=== PATIENT | female | born 1970 | race Caucasian/White ===

== ENCOUNTER 2022-01-12 05:45 | Day surgery (SDC) | payer BC ==
[2022-01-08 14:17] VITALS: BMI 33.2
--- NOTE | 2022-01-10 07:20 | P.HPOB ---
History of Present Illness H&P Date: 01/10/22 Chief Complaint: Dysfunctional uterine bleeding, abnormal endometrial thickening This patient is a pleasant 51-year-old 3 para 2 female who initially presented to me in early December with complaints of irregular menstrual bleeding. Patient not been in the office in approximately 17 years. She states that she was having regular menstrual cycles until May of last year and then started having 2 a month. She also had 2 episodes of bleeding in July. I did order a transvaginal ultrasound which showed endometrial thickening to 26- 1/2 mm and 2 small fibroids. Patient now presents for hysteroscopy D&C for further evaluation and treatment. Review of Systems Genitourinary: Reports abnormal vaginal bleeding, Reports menorrhagia Past Medical History Past Medical History: Hypertension Additional Past Medical History / Comment(s): abnormal vaginal bleeding History of Any Multi-Drug Resistant Organisms: None Reported Additional Past Surgical History / Comment(s): D&C Past Anesthesia/Blood Transfusion Reactions: No Reported Reaction Past Psychological History: No Psychological Hx Reported Smoking Status: Never smoker Past Alcohol Use History: None Reported Past Drug Use History: None Reported - Past Family History Father Family Medical History: Cancer Medications and Allergies Home Medications Medication Instructions Recorded Confirmed Type Ascorbic Acid [Vitamin C] 500 mg PO Q2D 01/08/22 01/08/22 History Cholecalciferol [Vitamin D3 (25 25 mcg PO Q2D 01/08/22 01/08/22 History Mcg = 1000 Iu)] Metoprolol Tartrate [Lopressor] 50 mg PO BID 01/08/22 01/08/22 History Vit C/E/Zn/Coppr/Lutein/Zeaxan 1 each PO DAILY 01/08/22 01/08/22 History [Preservision Areds 2 Softgel] lisinopriL [Zestril] 20 mg PO PC-SUPPER 01/08/22 01/08/22 History Allergies Allergy/AdvReac Type Severity Reaction Status Date / Time Penicillins Allergy Swelling Verified 01/08/22 14:08 Exam - OBG Physical Exam Abdomen: bowel sounds normal, no diffuse tenderness, no bruit present, no guarding noted, no hepatomegaly, no splenomegaly, no mass Vulva: both: normal Vagina: normal moisture, no discharge Cervix: no lesion, no discharge Uterus: normal size, normal contour Results Transvaginal ultrasound shows endometrium to be 26.5 mm. She has a few small fibroids the largest is 2.7 cm Assessment and Plan Assessment: This is a pleasant 51-year-old 3 para 2 female with approximately 6+ months of dysfunctional uterine bleeding and abnormal thickening on transvaginal ultrasound. Plan is hysteroscopy and D&C for further evaluation. Patient I have discussed the surgery and risks and risks of infection, bleeding, possible uterine perforation. All the patient's questions are answered and a written consent obtained. (1) Dysfunctional uterine bleeding Status: Acute Code(s): N93.8 - OTHER SPECIFIED ABNORMAL UTERINE AND VAGINAL BLEEDING SNOMED Code(s): 93656691550067 (2) Endometrial thickening on ultrasound Status: Acute Code(s): R93.89 - ABNORMAL FINDINGS ON DX IMAGING OF OTH BODY STRUCTURES SNOMED Code(s): 307063453
[~2022-01-12 05:45] MED LIST: Pre Op ABX Message 1 EACH MISC MISCELLANE ONE
[2022-01-12] MEDS ORDERED: DEXAMETHASONE SOD PHOSPHATE 4 MG/ML 1 ML VIAL IV ONE (06:11)
[2022-01-12] MEDS ORDERED: HYDROmorphone 0.5 MG/0.5 ML SYRINGE IVP PRN (06:11)
[2022-01-12] MEDS ORDERED: ONDANSETRON 4 MG/2 ML VIAL IVP ONE (06:11)
[2022-01-12] MEDS ORDERED: LACTATED RINGERS 1,000 ML IV SCH (06:11)
[2022-01-12] MEDS ORDERED: SUCCINYLCHOLINE CHLORIDE 100 MG/5 ML SYR IV ONE (06:45)
[2022-01-12] MEDS ORDERED: fentaNYL (PF) 50 MCG/ML 2 ML AMP ONE (06:45)
[2022-01-12] MEDS ORDERED: LIDOCAINE 1% INJ 10MG/ML (20 ML MDV) ONE (06:45)
[2022-01-12] MEDS ORDERED: MIDAZOLAM 2 MG/2 ML VIAL ONE (06:45)
[2022-01-12] MEDS ORDERED: PROPOFOL 10 MG/ML 20 ML VIAL IV ONE (06:45)
--- NOTE | 2022-01-12 07:25 | P.OP ---
Date of Procedure: 01/12/22 Preoperative Diagnosis: Dysfunctional uterine bleeding with thickening on pelvic ultrasound Postoperative Diagnosis: Same Procedure(s) Performed: #1: Hysteroscopy. #2: Dilation and curettage Anesthesia: AFIA Surgeon: Musa Do Estimated Blood Loss (ml): 10 Urine output (ml): 10 Pathology: other (Uterine curettings) Condition: stable Disposition: PACU Indications for Procedure: Please see dictated H&P for intimate details of this patient's admission. Brief summary this pleasant 51-year-old multiparous patient who presented to me with complaints of dysfunctional uterine bleeding. Patient had a transvaginal ultrasound showed endometrial thickening 26-1/2 mm and therefore presents for hysteroscopy D&C for further evaluation. Patient does understand the surgery and risks and risks of infection, bleeding, possible uterine perforation. All the patient's questions are answered and a written consent is obtained. Operative Findings: This patient had thickening of the lining consistent with multiple polyps. Description of Procedure: This patient is taken to the operating room where she is laid in supine position. She subsequently undergoes general endotracheal anesthesia without incident. With adequate level of anesthesia she's placed in dorsal lithotomy position. She has a vaginal perineal prep and drape. Examination under anesthesia shows a mid position uterus of normal size. Weighted speculum placed in posterior vagina. Bladder is drained for 10 mL of clear urine. I placed an Allis clamp on the anterior lip of cervix. Uterus is then sounded to 9 cm. This done serial dilation of the endocervix is done to allow a hysteroscope into the uterine cavity using saline solution hysteroscopy is performed. Uterine cavity does appear to be thickened with multiple areas appear to be polyps. There is no evidence of any fibroids or other concerning growths. This done the hysteroscope was removed. Cervix is dilated more to allow the polyp forceps easily uterine cavity. I do remove several areas. I did do a vigorous, thorough, but gentle 4 quadrant curettage. Excellent sampling is done. This done the procedure is ended. The Allis clamp and weighted speculum removed. All counts are correct 3. There are no complications. Patient is awakened from anesthesia and taken recovery room satisfactory condition.
[2022-01-12 07:27] VITALS: TEMP 97
[2022-01-12] MEDS ORDERED: KETOROLAC 15 MG/ML 1 ML VIAL IVP ONE (07:32)
[2022-01-12 08:08] VITALS: RESP 18
[2022-01-12 09:02] VITALS: BP 135/71; PULSE 61
== END 2022-01-12 09:01 | disposition home or self-care (01) ==
LOC: OR 05:45
PROVIDERS: ATTEND Obstetrics & Gynecology
DX: N93.8 Other specified abnormal uterine and vaginal bleeding (principal); R93.89 Abnormal findings on diagnostic imaging of other specified body structures; I10 Essential (primary) hypertension; Z80.9 Family history of malignant neoplasm, unspecified; Z79.899 Other long term (current) drug therapy; Z79.1 Long term (current) use of non-steroidal anti-inflammatories (NSAID); Z88.0 Allergy status to penicillin
CPT/HCPCS: 81025; 88305; 58558; J2250; J1100; J2405; J2001; J3010; J1885; J0330; J2704

== ENCOUNTER 2022-01-22 07:25 | Emergency (ER) | payer BC ==
[2022-01-22] MEDS ORDERED: SODIUM CHLORIDE 0.9% 500 ML 500 ML IV STA (07:36)
[2022-01-22] MEDS ORDERED: MECLIZINE 12.5 MG TAB PO STA (07:42)
--- NOTE | 2022-01-22 07:50 | ED ---
General Adult HPI - General Chief complaint: Dizziness Stated complaint: Dizziness Time Seen by Provider: 01/22/22 07:35 Source: patient, RN notes reviewed, old records reviewed Mode of arrival: wheelchair Limitations: no limitations - History of Present Illness Initial comments: This is a well-appearing 52-year-old female that presents to the emergency room with complaints of intermittent dizziness. Patient states that it started last night when she was blow drying her hair with her head upside down and after quickly lifting her head. Patient states that this dizziness is worse with certain movements. She denies any chest pain, difficulty in breathing or headaches. No nausea, vomiting, diarrhea or fevers. She does have history of hypertension and takes metoprolol and lisinopril and did take her medicines this morning. -: days(s) (1) Location: head Severity scale (1-10): 0 Consistency: intermittent, now resolved Worsens with: movement - Related Data Home Medications Medication Instructions Recorded Confirmed Ascorbic Acid [Vitamin C] 500 mg PO Q2D 01/08/22 01/22/22 Cholecalciferol [Vitamin D3 (25 25 mcg PO Q2D 01/08/22 01/22/22 Mcg = 1000 Iu)] Metoprolol Tartrate [Lopressor] 50 mg PO BID 01/08/22 01/22/22 Vit C/E/Zn/Coppr/Lutein/Zeaxan 1 cap PO DAILY 01/08/22 01/22/22 [Preservision Areds 2 Softgel] lisinopriL [Zestril] 20 mg PO PC-SUPPER 01/08/22 01/22/22 Previous Rx's Medication Instructions Recorded Ibuprofen [Motrin] 600 mg PO Q6HR PRN #30 tab 01/12/22 Meclizine [Antivert] 25 mg PO TID PRN #15 tab 01/22/22 Allergies Allergy/AdvReac Type Severity Reaction Status Date / Time Penicillins Allergy Lip Verified 01/22/22 08:40 Swelling Review of Systems ROS Statement: Those systems with pertinent positive or pertinent negative responses have been documented in the HPI. ROS Other: All systems not noted in ROS Statement are negative. Past Medical History Past Medical History: Hypertension Additional Past Medical History / Comment(s): abnormal vaginal bleeding History of Any Multi-Drug Resistant Organisms: None Reported Additional Past Surgical History / Comment(s): D&C Past Anesthesia/Blood Transfusion Reactions: No Reported Reaction Past Psychological History: No Psychological Hx Reported Smoking Status: Never smoker Past Alcohol Use History: None Reported Past Drug Use History: None Reported - Past Family History Father Family Medical History: Cancer General Exam Limitations: no limitations General appearance: alert, in no apparent distress Head exam: Present: atraumatic Eye exam: Present: normal appearance, PERRL, EOMI. Absent: scleral icterus, conjunctival injection, periorbital swelling, periorbital tenderness Pupils: Present: normal accommodation ENT exam: Present: normal exam, normal oropharynx, mucous membranes moist, TM's normal bilaterally (Cerumen noted left, TMs pearly blevins bilaterally, no bulging) Neck exam: Present: normal inspection. Absent: tenderness, meningismus, lymphadenopathy Respiratory exam: Present: normal lung sounds bilaterally. Absent: respiratory distress, wheezes, rales, rhonchi, stridor, chest wall tenderness, accessory muscle use, decreased breath sounds Cardiovascular Exam: Present: regular rate, normal rhythm, normal heart sounds. Absent: JVD GI/Abdominal exam: Present: soft Extremities exam: Present: normal capillary refill. Absent: pedal edema Back exam: Present: normal inspection, full ROM. Absent: tenderness, CVA t enderness (R), CVA tenderness (L), rash noted Neurological exam: Present: alert, oriented X3, CN II-XII intact Expanded Patient oriented to: Present: person, place, time Speech: Present: fluid speech Cranial nerves: EOM's Intact: Normal, Gag Reflex: Normal, Tongue Deviation: Normal Motor strength exam: RUE: 5, LUE: 5, RLE: 5, LLE: 5 Eye Response: (4) open spontaneously Motor Response: (6) obeys commands Verbal Response: (5) oriented Donald Total: 15 Psychiatric exam: Present: normal affect, normal mood Skin exam: Present: warm, dry, intact, normal color. Absent: cyanosis, diaphoretic, petechiae, pallor Course Vital Signs 01/22/22 01/22/22 01/22/22 07:27 08:18 10:10 Temperature 98.7 F 98.5 F Pulse Rate 89 67 72 Respiratory 16 18 16 Rate Blood Pressure 157/87 143/82 126/72 O2 Sat by Pulse 99 98 99 Oximetry EKG Findings - EKG Results: EKG: sinus rhythm (Ventricular rate of 79, AK interval 0.146, QRS 0.97, QTC 0.401) Medical Decision Making - Medical Decision Making Patient presents with complaints of intermittent dizziness after drying her hair with her head upside down yesterday. She states that her symptoms are resolved at this time. There is no evidence of nystagmus, no focal neurological deficits. Negative HINTS exam. She denies any headache or blurred vision. She has no focal neurological deficits. Tympanic membranes are pearly blevins, there is some evidence of cerumen in the left ear. Patient states that she has had problems with cerumen impaction in the past. Chest x-ray shows no acute cardiopulmonary process. EKG shows sinus rhythm troponin is negative at 0.012. Electrolytes are unremarkable. Hemoglobin and hematocrit are stable. Vital signs are stable. Patient's symptoms are likely related to benign paroxysmal positional vertigo. She was directed to change positions slowly and given Antivert at discharge. Instructed to follow up with ENT. She is agreeable to this plan of care. Case discussed with Dr. Mclaughlin. - Lab Data Result diagrams: 01/22/22 08:18 01/22/22 08:18 Lab Results 01/22/22 01/22/22 01/22/22 Range/Units 08:18 08:18 08:18 WBC 13.0 H (3.8-10.6) k/uL RBC 5.00 (3.80-5.40) m/uL Hgb 15.0 (11.4-16.0) gm/dL Hct 43.5 (34.0-46.0) % MCV 87.0 (80.0-100.0) fL MCH 30.0 (25.0-35.0) pg MCHC 34.5 (31.0-37.0) g/dL RDW 13.3 (11.5-15.5) % Plt Count 285 (150-450) k/uL MPV 7.8 Neutrophils % 87 % Lymphocytes % 9 % Monocytes % 3 % Eosinophils % 0 % Basophils % 0 % Neutrophils # 11.4 H (1.3-7.7) k/uL Lymphocytes # 1.1 (1.0-4.8) k/uL Monocytes # 0.3 (0-1.0) k/uL Eosinophils # 0.1 (0-0.7) k/uL Basophils # 0.1 (0-0.2) k/uL Sodium 136 L (137-145) mmol/L Potassium 4.5 (3.5-5.1) mmol/L Chloride 104 (98-107) mmol/L Carbon Dioxide 24 (22-30) mmol/L Anion Gap 8 mmol/L BUN 17 (7-17) mg/dL Creatinine 0.75 (0.52-1.04) mg/dL Est GFR (CKD-EPI)AfAm >90 (>60 ml/min/1.73 sqM) Est GFR (CKD-EPI)NonAf >90 (>60 ml/min/1.73 sqM) Glucose 151 H (74-99) mg/dL Calcium 8.8 (8.4-10.2) mg/dL Total Bilirubin 0.8 (0.2-1.3) mg/dL AST 21 (14-36) U/L ALT 20 (4-34) U/L Alkaline Phosphatase 134 H (38-126) U/L Troponin I (0.000-0.034) ng/mL Total Protein 7.5 (6.3-8.2) g/dL Albumin 4.3 (3.5-5.0) g/dL Urine Color Yellow Urine Appearance Clear (Clear) Urine pH 5.5 (5.0-8.0) Ur Specific [place] 1.023 (1.001-1.035) Urine Protein Negative (Negative) Urine Glucose (UA) Negative (Negative) Urine Ketones Negative (Negative) Urine Blood Negative (Negative) Urine Nitrite Negative (Negative) Urine Bilirubin Negative (Negative) Urine Urobilinogen 2.0 (<2.0) mg/dL Ur Leukocyte Esterase Moderate H (Negative) Urine RBC 1 (0-5) /hpf Urine WBC 12 H (0-5) /hpf Ur Squamous Epith Cells 3 (0-4) /hpf Urine Mucus Rare H (None) /hpf 01/22/22 Range/Units 08:18 WBC (3.8-10.6) k/uL RBC (3.80-5.40) m/uL Hgb (11.4-16.0) gm/dL Hct (34.0-46.0) % MCV (80.0-100.0) fL MCH (25.0-35.0) pg MCHC (31.0-37.0) g/dL RDW (11.5-15.5) % Plt Count (150-450) k/uL MPV Neutrophils % % Lymphocytes % % Monocytes % % Eosinophils % % Basophils % % Neutrophils # (1.3-7.7) k/uL Lymphocytes # (1.0-4.8) k/uL Monocytes # (0-1.0) k/uL Eosinophils # (0-0.7) k/uL Basophils # (0-0.2) k/uL Sodium (137-145) mmol/L Potassium (3.5-5.1) mmol/L Chloride (98-107) mmol/L Carbon Dioxide (22-30) mmol/L Anion Gap mmol/L BUN (7-17) mg/dL Creatinine (0.52-1.04) mg/dL Est GFR (CKD-EPI)AfAm (>60 ml/min/1.73 sqM) Est GFR (CKD-EPI)NonAf (>60 ml/min/1.73 sqM) Glucose (74-99) mg/dL Calcium (8.4-10.2) mg/dL Total Bilirubin (0.2-1.3) mg/dL AST (14-36) U/L ALT (4-34) U/L Alkaline Phosphatase (38-126) U/L Troponin I <0.012 (0.000-0.034) ng/mL Total Protein (6.3-8.2) g/dL Albumin (3.5-5.0) g/dL Urine Color Urine Appearance (Clear) Urine pH (5.0-8.0) Ur Specific [place] (1.001-1.035) Urine Protein (Negative) Urine Glucose (UA) (Negative) Urine Ketones (Negative) Urine Blood (Negative) Urine Nitrite (Negative) Urine Bilirubin (Negative) Urine Urobilinogen (<2.0) mg/dL Ur Leukocyte Esterase (Negative) Urine RBC (0-5) /hpf Urine WBC (0-5) /hpf Ur Squamous Epith Cells (0-4) /hpf Urine Mucus (None) /hpf Disposition Clinical Impression: Benign positional vertigo Disposition: HOME SELF-CARE Condition: Good Instructions (If sedation given, give patient instructions): Benign Paroxysmal Positional Vertigo (ED), Dizziness (ED) Additional Instructions: Change positions slowly. Follow up with primary care doctor next week. Also follow-up with ENT for vertigo symptoms. Take Antivert as prescribed for dizziness. Prescriptions: Meclizine [Antivert] 25 mg PO TID PRN #15 tab PRN Reason: Vertigo Is patient prescribed a controlled substance at d/c from ED?: No Referrals: Meir Christian MD [Primary Care Provider] - 1-2 days Ryan Singleton MD [STAFF PHYSICIAN] - 1-2 days Time of Disposition: 09:52
--- NOTE | 2022-01-22 08:41 | XR ---
EXAMINATION TYPE: XR chest 2V DATE OF EXAM: 01/22/2022 COMPARISON: NONE HISTORY: Dizziness and weakness. TECHNIQUE: Frontal and lateral views of the chest are obtained. FINDINGS: There is no focal air space opacity, pleural effusion, or pneumothorax seen. The cardiac silhouette size is within normal limits. The osseous structures are intact. IMPRESSION: No acute cardiopulmonary process.
[2022-01-22 08:48] LABS: Basophils # (A) 0.1 k/uL (0-0.2); Basophils % (A) 0 %; Eosinophils # (A) 0.1 k/uL (0-0.7); Eosinophils % (A) 0 %; HCT 43.5 % (34.0-46.0); Lymphocytes # (A) 1.1 k/uL (1.0-4.8); Lymphocytes % (A) 9 %; MCHC 34.5 g/dL (31.0-37.0); Mean Platelet Volume 7.8; Monocytes # (A) 0.3 k/uL (0-1.0); Monocytes % (A) 3 %; Neutrophils # (A) 11.4 k/uL (1.3-7.7); Neutrophils % (A) 87 %; Platelet Count 285 k/uL (150-450); RDW 13.3 % (11.5-15.5)
[2022-01-22 09:00] LABS: Appearance,Urine Clear (Clear); Bilirubin,Urine Negative (Negative); Blood,Urine Negative (Negative); Color,Urine Yellow; Glucose,Urine (UA) Negative (Negative); Ketones,Urine Negative (Negative); Leukocyte Esterase,Urine Moderate (Negative); Mucus,Urine Rare /hpf; Nitrite,Urine Negative (Negative); PH, Urine 5.5 (5.0-8.0); Protein,Urine Negative (Negative); RBC,Urine 1 /hpf (0-5); Specific Gravity,Urine 1.023 (1.001-1.035); Squamous Epithelial Cell,Urine 3 /hpf (0-4); WBC,Urine 12 /hpf (0-5)
[2022-01-22 09:18] LABS: ALT 20 U/L (4-34); AST 21 U/L (14-36); African American GFR (CKD) >90 (>60 ml/min/1.73 sqM); Albumin 4.3 g/dL (3.5-5.0); Alkaline Phosphatase 134 U/L (38-126); Anion Gap 8 mmol/L; Blood Urea Nitrogen 17 mg/dL (7-17); Calcium 8.8 mg/dL (8.4-10.2); Carbon Dioxide 24 mmol/L (22-30); Chloride 104 mmol/L (98-107); Glucose 151 mg/dL (74-99); Non-African American GFR(CKD) >90 (>60 ml/min/1.73 sqM); Potassium 4.5 mmol/L (3.5-5.1); Sodium 136 mmol/L (137-145); Total Bilirubin 0.8 mg/dL (0.2-1.3); Total Protein 7.5 g/dL (6.3-8.2)
[2022-01-22 10:11] VITALS: BP 126/72; PULSE 72; RESP 16; TEMP 98.5
== END 2022-01-22 10:25 | disposition home or self-care (01) ==
LOC: EC 07:25
DX: H81.12 Benign paroxysmal vertigo, left ear (principal); I10 Essential (primary) hypertension; Z88.0 Allergy status to penicillin; Z79.899 Other long term (current) drug therapy
CPT/HCPCS: 36415; 71046; 80053; 81001; 84484; 85025; 87086; 93005; 96360; 99284

== ENCOUNTER → 2022-01-30 | Outpatient (CLI) | payer BC ==
--- NOTE | 2022-02-03 15:07 | MM ---
Reason for exam: screening (asymptomatic). Last mammogram was performed 1 year and 5 months ago. History: Family history of breast cancer in 2 paternal aunts. Physical Findings: A clinical breast exam by your physician is recommended on an annual basis and results should be correlated with mammographic findings. MG 3D Screening Mammo W/Cad Bilateral CC and MLO view(s) were taken. Prior study comparison: August 23, 2020, mammogram, performed at [facility]. September 22, 2012, mammogram, performed at [facility]. There are scattered fibroglandular densities. No significant changes when compared with prior studies. ASSESSMENT: Benign, BI-RAD 2 RECOMMENDATION: Routine screening mammogram of both breasts in 1 year.
== END ==
LOC: RADMAMWWP 13:45
PROVIDERS: ATTEND Obstetrics & Gynecology
DX: Z12.31 Encounter for screening mammogram for malignant neoplasm of breast (principal)
CPT/HCPCS: 77063; 77067

== ENCOUNTER → 2023-03-23 | Outpatient (CLI) | payer BC ==
--- NOTE | 2023-03-24 09:26 | MM ---
Reason for Exam: Screening (asymptomatic). Last mammogram was performed 1 year(s) and 2 month(s) ago. Patient History: Menarche at age 17. First Full-Term at age 32. Late child-bearing (after 30). Premenopausal. Patient has history of breast feeding. Paternal aunt had breast cancer. Paternal aunt had breast cancer. Risk Values: Janelle 5 year model risk: 1.3%. NCI Lifetime model risk: 11.0%. Prior Study Comparison: 09/22/2012 Screening Mammogram, [facility]. 08/23/2020 Screening Mammogram, [facility]. 01/30/2022 Bilateral Screening Mammogram, [facility]. Tissue Density: There are scattered fibroglandular densities. Findings: Analyzed By CAD. There is no suspicious group of microcalcifications or new suspicious mass in either breast. Overall Assessment: Negative, BI-RAD 1 Management: Screening Mammogram of both breasts in [address] [facility] will attempt to contact patient to return for supplemental views and ultrasound if indicated. Patient should continue monthly self-breast exams. A clinical breast exam by your physician is recommended on an annual basis. This exam should not preclude additional follow-up of suspicious palpable abnormalities. Note on Janelle scores and lifetime risk: 1. A Janelle score greater than 3% is considered moderate risk. If this is the case, consider specialist referral to assess eligibility for a risk reducing agent. 2. If overall lifetime risk for the development of breast cancer is 20% or higher, the patient may qualify for future screening with alternating mammogram and breast MRI. Electronically signed and approved by: Fareed Rucker DO
== END | disposition home or self-care (01) ==
LOC: RADMAMWWP 07:51
PROVIDERS: ATTEND Obstetrics & Gynecology
DX: Z12.31 Encounter for screening mammogram for malignant neoplasm of breast (principal); Z80.3 Family history of malignant neoplasm of breast
CPT/HCPCS: 77063; 77067

== ENCOUNTER 2024-03-24 11:45 | Day surgery (SDC) | payer BC ==
[2024-03-20 09:29] VITALS: BMI 32.0
[2024-03-24] MEDS: LACTATED RINGERS 1,000 ML IV SCH (12:56)
[2024-03-24] MEDS: NA PHOS,M-B/NA PHOS,DI-BA 133 ML ENEMA RECTAL ONE (13:08)
[2024-03-24 13:23] VITALS: TEMP 98.6
[2024-03-24] MEDS ORDERED: PROPOFOL 10 MG/ML 20 ML VIAL IV ONE (13:48)
--- NOTE | 2024-03-24 14:07 | P.PCN ---
Date of Procedure: 03/24/24 Procedure(s) Performed: BRIEF HISTORY: Patient is a 54-year-old pleasant white female scheduled for an elective colonoscopy as a part of screening for colon cancer. PROCEDURE PERFORMED: Colonoscopy with biopsy. PREOPERATIVE DIAGNOSIS: Screening for colon cancer. IV sedation per Anesthesia. PROCEDURE: After informed consent was obtained, the patient, was brought into the endoscopy unit. IV sedation was administered by Anesthesia under continuous monitoring. Digital rectal examination was normal. Initially the Olympus CF-160 flexible video colonoscope was then inserted in the rectum, gradually advanced into the cecum without any difficulty. Careful examination was performed as the scope was gradually being withdrawn. Ileocecal valve and the appendiceal orifice were visualized and appeared normal. Prep was excellent. Mucosa of the cecum, ascending colon, transverse colon, descending colon, sigmoid colon, and rectum appeared normal. In the mid rectum there was a 3 mm polyp that was removed by cold biopsy. Retroflexion was performed in the rectum and no lesions were seen. The patient tolerated the procedure well. IMPRESSION: 3 mm mid rectal polyp status post cold biopsy Rest of the colon appeared normal RECOMMENDATIONS: Findings of this examination were discussed with the patient as well as her family.. She was advised to follow-up with the biopsy results. If the biopsy is adenoma she can do colonoscopy in 5 years.
[2024-03-24 15:18] VITALS: BP 145/78; PULSE 69; RESP 16
== END 2024-03-24 14:55 | disposition home or self-care (01) ==
LOC: ORWHC2ENDO 11:45
PROVIDERS: ATTEND Internal Medicine Gastroenterology
DX: Z12.11 Encounter for screening for malignant neoplasm of colon (principal); D12.8 Benign neoplasm of rectum; I10 Essential (primary) hypertension; Z79.899 Other long term (current) drug therapy; Z88.0 Allergy status to penicillin
CPT/HCPCS: 81025; 88305; 45380; J2704

== ENCOUNTER → 2024-10-04 | Outpatient (CLI) | payer BC ==
--- NOTE | 2024-10-09 11:33 | MM ---
Reason for Exam: Screening (asymptomatic). Last mammogram was performed 1 year(s) and 6 month(s) ago. Patient History: Menarche at age 17. First Full-Term at age 32. Late child-bearing (after 30). Premenopausal. Patient has history of breast feeding. Paternal aunt had breast cancer. Paternal aunt had breast cancer. Risk Values: Janelle 5 year model risk: 1.3%. NCI Lifetime model risk: 10.8%. Prior Study Comparison: 08/23/2020 Screening Mammogram, [facility]. 01/30/2022 Bilateral Screening Mammogram, [facility]. 03/23/2023 Bilateral MG 3D screening mammo w/cad, [facility]. Tissue Density: There are scattered areas of fibroglandular density. Findings: Analyzed By CAD. Some fluctuating chronic nodularity on the right. Unchanged focal asymmetry posterior central 12:00 left breast. There is no suspicious group of microcalcifications or new suspicious mass in either breast. Overall Assessment: Benign, BI-RAD 2 Management: Screening Mammogram of both breasts in 1 year. . Patient should continue monthly self-breast exams. A clinical breast exam by your physician is recommended on an annual basis. This exam should not preclude additional follow-up of suspicious palpable abnormalities. Note on Janelle scores and lifetime risk: 1. A Janelle score greater than 3% is considered moderate risk. If this is the case, consider specialist referral to assess eligibility for a risk reducing agent. 2. If overall lifetime risk for the development of breast cancer is 20% or higher, the patient may qualify for future screening with alternating mammogram and breast MRI. [facility], , 10/09/2024 11:31 AM. Electronically signed and approved by: Clarence Landrum M.D. Radiologist
== END | disposition home or self-care (01) ==
LOC: RADMAMWWP 11:22
DX: Z12.31 Encounter for screening mammogram for malignant neoplasm of breast (principal); R92.323 Mammographic fibroglandular density, bilateral breasts; Z80.3 Family history of malignant neoplasm of breast
CPT/HCPCS: 77063; 77067